=== PATIENT | female | born 1965 | race Caucasian/White ===

== ENCOUNTER 2016-11-27 10:00 | Emergency (ER) | payer OTHER ==
[~2016-11-27] VITALS: Ht 160 cm; Wt 51.0 kg
[2016-11-27 10:02] VITALS: BP 136/85; PULSE 78; RESP 16; TEMP 97.7; O2SAT 99
[2016-11-27] MEDS ORDERED: TETANUS/DIPHTHERIA TOXOID ADULT 0.5 ML VIAL IM ONE (10:30)
[2016-11-27] MEDS ORDERED: LIDOCAINE HCL 1% 50 ML VIAL INFIL ONE (10:30)
[2016-11-27] MEDS ORDERED: ACETAMINOPHEN/HYDROcodone 325 MG/5 MG TAB PO ONE (10:30)
--- NOTE | 2016-11-27 10:43 | PD ---
Physical Exam Date Seen by Provider: Nov 27, 2016 Time Seen by Provider: 10:41 Data Data Last Documented VS Vital Signs Date Time Temp Pulse Resp B/P Pulse Ox O2 Delivery O2 Flow Rate FiO2 11/27/16 11:51 98 11/27/16 10:02 97.7 78 16 136/85 Orders Acetamin-Hydrocod 325-5 Mg ([place] 5-325 (11/27/16 10:30) Tetanus/Diphtheria Tox Adult (Tetanus/Di (11/27/16 10:30) Lidocaine 1% Inj (50 Ml) (Xylocaine 1% I (11/27/16 10:30) MDM Supervised Visit with [facility]: No Narrative Course I was asked to evaluate this patient's laceration. Patient was surfing and cut by the skin of her surfboard just before arrival. This patient was initially seen by Dr. Acuna. Please see her note for full details. On my exam there is an approximate 4cm laceration of the medial aspect of the left lower leg. There is a palpable DP pulse. She is able to flex and extend the ankle and the toes. Neurovascularly intact distally. Laceration repair was performed. Please see my procedure note for details. Dr. Acuna retains care of this patient. Please see her note for disposition. Procedures Procedure Narrative LACERATION LOCATION: Medial aspect left lower leg LENGTH: 4 cm NUMBER OF STITCHES/MARY KAY: 6 REPAIR: The area of the laceration was prepped with Betadine and sterilely draped. The laceration was infiltrated with 50:50 mix of 1% lidocaine and 1% lidocaine with epinephrine. The wound was copiously irrigated and explored without evidence of foreign body, tendon injury or neurovascular injury. The wound was closed using 4-0 Prolene. This was a single layer repair. A sterile dressing was applied. The patient was advised to keep the dressing clean and dry. Patient tolerated the procedure well. Referrals: Primary Care Physician Patient Instructions: Care For Your Stitches (ED), General Instructions Additional Instruction: Rest, hydrate. Do not change the dressing for 2 days. You may shower normally. Do not submerge the wound. After bathing pat of wound dry. Allow the wound to air dry for 10-15 minutes. Apply a thin layer of antibiotic ointment and a clean, dry dressing. Utilize [id number] pain medications, as described on the label, as needed. Suture removal in 7-10 days. Monitor for signs of infection including redness, warmth, discharge. Return to the ED should these symptoms occur. Follow-up with your primary care provider. Return to the ED for any urgent or emergent medical condition. Scripts No Active Prescriptions or Reported Meds Disposition: 01 DISCHARGE HOME Condition: Stable Maura Akbar Nov 27, 2016 10:43
--- NOTE | 2016-11-27 10:51 | PD ---
HPI . Left leg laceration Chief Complaint: Laceration/Skin Injury Time Seen by Provider: 10:14 Travel History International Travel<30 days: No Contact w/Intl Traveler<30days: No Traveled to known affect area: No History of Present Illness HPI Patient presents for the evaluation and treatment of a laceration on her left bee. She cut it shortly prior to presentation on the fin of a surfboard in the [place]. She does not recall the date of her last tetanus shot. She describes pain which is rated 10/10. No exacerbating or relieving factors. [facility] Past Medical History Medical History: Denies Significant Hx Diminished Hearing: No Immunizations Current: No Tetanus Vaccination: Never Vaccinated Influenza Vaccination: No ?: Not Past Surgical History Surgical History: No Previous Surgery Social History Alcohol Use: Yes ([facility]) Tobacco Use: No Substance Use: No Allergies-Medications (Allergen,Severity, Reaction): Coded Allergies: No Known Allergies (Unverified , 11/27/16) Reported Meds & Prescriptions Reported Meds & Active Scripts Active No Active Prescriptions or Reported Medications Review of Systems Except as stated in HPI: all other systems reviewed are Neg Musculoskeletal: Positive: Pain (left lower extremity pain) Skin: Positive Other (laceration) Physical Exam Narrative GENERAL: Awake and alert and in no acute distress. SKIN: Warm and dry. She has about a 4 cm laceration to the left anterior bee. HEAD: Atraumatic. Normocephalic. EYES: Pupils equal and round. NECK: Trachea midline. CARDIOVASCULAR: Regular rate and rhythm. RESPIRATORY: No accessory muscle use. MUSCULOSKELETAL: No obvious deformities. No edema. NEUROLOGICAL: Awake and alert. No obvious cranial nerve deficits. Motor grossly within normal limits. Normal speech. PSYCHIATRIC: Appropriate mood and affect; insight and judgment normal. Data Data Last Documented VS Vital Signs Date Time Temp Pulse Resp B/P Pulse Ox O2 Delivery O2 Flow Rate FiO2 11/27/16 10:02 97.7 78 16 136/85 99 Orders Acetamin-Hydrocod 325-5 Mg ([place] 5-325 (11/27/16 10:30) Tetanus/Diphtheria Tox Adult (Tetanus/Di (11/27/16 10:30) Lidocaine 1% Inj (50 Ml) (Xylocaine 1% I (11/27/16 10:30) MDM Medical Decision Making Medical Screen Exam Complete: Yes Emergency Medical Condition: Yes Differential Diagnosis Differential diagnosis includes but is not limited to skin laceration, muscular laceration, tendon laceration, neurovascular laceration. Narrative Course Patient presents for treatment of a laceration to her left bee. Her tetanus will be updated. The laceration will be repaired by Maura Akbar. Diagnosis Primary Impression: Laceration of leg Qualified Code: S81.812A - Laceration of leg, left, initial encounter Patient Instructions: General Instructions, Care For Your Stitches (ED) Additional Instructions: Clean the wound twice daily with soap and water. Apply a thin layer of Neosporin ointment after you wash it. See your doctor in 7 days for suture removal. Seek care sooner for redness, drainage, warmth, unusual pain. Scripts No Active Prescriptions or Reported Meds Disposition: 01 DISCHARGE HOME Condition: Stable Eri Acuna MD Nov 27, 2016 10:51
== END 2016-11-27 11:52 | disposition home or self-care (01) ==
LOC: NEPD 10:00
DX: S81.812A Laceration without foreign body, left lower leg, initial encounter (principal); Z23 Encounter for immunization; W45.8XXA Other foreign body or object entering through skin, initial encounter; Y93.18 Activity, surfing, windsurfing and boogie boarding
CPT/HCPCS: 12002; 90471; 90714